=== PATIENT | female | born 2000 | race African-American/Black ===

== ENCOUNTER 2021-02-19 17:27 | Inpatient (IN) ==
[2021-02-19 18:17] LABS: Bilirubin,Urine Negative (Negative); Blood, Urine Moderate mg/dL (Negative); Glucose,Urine (UA) Negative (Negative); Ketones,Urine Negative (Negative); Mucus,Urine Occasional /LPF (Occasional); Nitrite,Urine Negative (Negative); Protein,Urine Negative; RBC,Urine 2 /HPF (0-4); Squamous Epithelial Cell,Urine Occasional /HPF (0-10); Urine Appearance CLOUDY (Clear); Urine Color Yellow (Yellow); Urine Specific Gravity 1.015 (1.001-1.035)
[2021-02-19] MEDS ORDERED: AMPICILLIN INJ 2,000 MG in SODIUM CHLORIDE 0.9% 100 ML IV ONE (18:50)
[2021-02-19] MEDS ORDERED: LACTATED RINGERS 1,000 ML IV ONE (18:50)
[2021-02-19] MEDS ORDERED: PROMETHAZINE 25 MG/1 ML VIAL IM ONE (20:19)
[2021-02-19] MEDS ORDERED: MEPERIDINE 50 MG/1 ML VIAL ONE (21:19)
[2021-02-19] MEDS ORDERED: MEPERIDINE 50 MG/1 ML VIAL IV PRN (21:21)
[2021-02-20] MEDS ORDERED: ONDANSETRON 4 MG/2 ML VIAL IV ONE (09:03)
[2021-02-20] MEDS ORDERED: FAMOTIDINE 20 MG/2 ML VIAL IV ONE (09:03)
[2021-02-20] MEDS ORDERED: LACTATED RINGERS 1,000 ML IV ONE (09:03)
[2021-02-20] MEDS ORDERED: CITRIC ACID/SODIUM CITRATE 30 ML UDCUP PO ONE (09:03)
[2021-02-20] MEDS ORDERED: ePHEDrine 50 MG/ML VIAL IV PRN (09:03)
[2021-02-20] MEDS ORDERED: NALOXONE 0.4 MG/ML VIAL IV PRN (09:03)
[2021-02-20] MEDS ORDERED: fentaNYL 2 MCG/ROPIV 0.2% EPID 100 ML EPIDURAL SCH (09:30)
[2021-02-20] MEDS ORDERED: LACTATED RINGERS 1,000 ML IV PRN (09:50)
[2021-02-20] MEDS ORDERED: LACTATED RINGERS 1,000 ML IV SCH (10:00)
[2021-02-20 10:25] LABS: Basophils % 0.2 % (0.0-0.8); Eosinophils % 0.1 % (0.00-10.9); Hematocrit 36.1 VOL% (35.7-47.0); Hemoglobin 11.4 GM/DL (12.0-16.0); Immature Granulocytes % 0.6 %; Immature Granulocytes Absolute 0.07 #; Lymphocytes # 1.6 10*3/uL (1.4-4.0); Lymphocytes % 13.6 % (21.3-54.2); Mean Corpuscular HGB Conc 31.6 GM/DL (32-36); Mean Corpuscular Volume 101.4 FL (87-102); Mean Platelet Volume 9.9 FL (9.6-12.0); Monocytes % 7.3 % (1.7-12.7); Neutrophils % 78.2 % (38.7-73.9); Platelet Count 243 T/CUMM (130-400); Red Blood Count 3.56 MC/CUMM (3.8-5.5); Red Cell Distribution Width 12.7 % (9.3-17.3); White Blood Count 11.9 T/CUMM (4-12)
[2021-02-20] MEDS: OXYTOCIN/LR 20 UNIT/1,000 ML BAG IV SCH ×2 (10:35→16:44)
[2021-02-20 10:45] LABS: Albumin 2.9 G/DL (3.4-5.0); Bilirubin,Total 0.6 MG/DL (0.20-1.00); Calcium 8.8 MG/DL (8.5-10.1); Osmolality,Calculated 279.1 MOS/KG (273-304); Potassium 3.6 MMOL/L (3.5-5.1); Total Protein 6.9 G/DL (6.4-8.2)
[2021-02-20 12:04] LABS: Bilirubin,Urine Negative (Negative); Blood, Urine Negative (Negative); Glucose,Urine (UA) Negative (Negative); Ketones,Urine 2+ mg/dL (Negative); Nitrite,Urine Negative (Negative); Protein,Urine 1+ MG/DL; Urine Appearance Clear (Clear); Urine Color Yellow (Yellow); Urine Specific Gravity 1.015 (1.001-1.035)
[2021-02-20] MEDS ORDERED: TRANEXAMIC ACID 1,000 MG/10 ML VIAL ONE (13:16)
[2021-02-20] MEDS ORDERED: OXYTOCIN/LR 20 UNIT/1,000 ML BAG IV ONE ×2 (13:16→16:52)
[2021-02-20] MEDS ORDERED: miSOPROStoL 200 MCG TABLET ONE (13:16)
[2021-02-20] MEDS ORDERED: SODIUM CHLORIDE 0.9% 0 ML IV ONE (13:17)
[2021-02-20] MEDS ORDERED: CARBOPROST TROMETHAMINE 250 MCG/ML AMP IM ONE (13:17)
[2021-02-20] MEDS ORDERED: METHYLERGONOVINE 0.2 MG/1 ML AMP ONE (13:17)
[2021-02-20 14:15] LABS: Cord Venous Blood HCO3 20.9 MMOL/L; Cord Venous Blood PCO2 42.7 MMHG; Cord Venous Blood PO2 27.6
[2021-02-20] MEDS ORDERED: RHO(D) IMMUNE GLOBULIN 300 MCG SYRINGE IM ONE (16:52)
[2021-02-20] MEDS ORDERED: BISACODYL 10 MG SUPP RECTAL PRN (16:52)
[2021-02-20] MEDS ORDERED: HYDROCORTISONE 2.5% RECTAL CREAM 30 GM TUBE TOP PRN (16:52)
[2021-02-20] MEDS ORDERED: WITCH HAZEL PADS 100/JAR TOP PRN (16:52)
[2021-02-20] MEDS ORDERED: LANOLIN 50% CREAM 0.3 OZ TUBE TOP PRN (16:52)
[2021-02-20] MEDS ORDERED: DIPH/TET/ACEL PERT BOOSTER VACCINE 0.5 ML VIAL IM ONE (16:52)
[2021-02-20] MEDS ORDERED: MEASLES/MUMPS/RUBELLA VACCINE 0.5 ML VIAL SUBCUT ONE (16:52)
[2021-02-20] MEDS ORDERED: BENZOCAINE 20%/MENTHOL 0.5% SPRAY 56 GM CAN TOP PRN (16:52)
[2021-02-20] MEDS ORDERED: oxyCODONE/ACETAMINOPHEN 5-325 MG TABLET PO PRN ×2 (16:52)
[2021-02-20] MEDS ORDERED: ACETAMINOPHEN 325 MG TABLET PO PRN (16:52)
[2021-02-20] MEDS: IBUPROFEN 800 MG TABLET PO PRN (21:11)
[2021-02-20] MEDS: DOCUSATE SODIUM 100 MG CAPSULE PO SCH (21:13)
[2021-02-21 06:22] LABS: Basophils # 0.1 10*3/uL (0.0-0.2); Basophils % 0.3 % (0.0-0.8); Eosinophils # 0.1 10*3/uL (0.0-0.87); Eosinophils % 0.3 % (0.00-10.9); Hematocrit 31.6 VOL% (35.7-47.0); Hemoglobin 10.2 GM/DL (12.0-16.0); Immature Granulocytes % 0.8 %; Immature Granulocytes Absolute 0.13 #; Lymphocytes # 2.1 10*3/uL (1.4-4.0); Lymphocytes % 12.1 % (21.3-54.2); Mean Corpuscular HGB Conc 32.3 GM/DL (32-36); Mean Platelet Volume 10.6 FL (9.6-12.0); Monocytes % 11.6 % (1.7-12.7); Neutrophils % 74.9 % (38.7-73.9); Platelet Count 223 T/CUMM (130-400); Red Blood Count 3.16 MC/CUMM (3.8-5.5); Red Cell Distribution Width 12.9 % (9.3-17.3); White Blood Count 17.1 T/CUMM (4-12)
[2021-02-21] MEDS: DOCUSATE SODIUM 100 MG CAPSULE PO SCH ×2 (09:14→20:26)
[2021-02-21] MEDS: IBUPROFEN 800 MG TABLET PO PRN (18:45)
[2021-02-22] MEDS: IBUPROFEN 800 MG TABLET PO PRN (02:29)
[2021-02-22] MEDS: DOCUSATE SODIUM 100 MG CAPSULE PO SCH (09:31)
[2021-02-22 11:56] VITALS: BP 118/50
== END 2021-02-22 12:35 | disposition home or self-care (01) | DRG 560 ==
LOC: N.LDOUT 17:27 → N.LD 17:27 → N.OB 02-20 17:11
PROVIDERS: ADMIT Obstetrics & Gynecology; ATTEND Obstetrics & Gynecology